=== PATIENT | male | born 1970 | race Caucasian/White ===

== ENCOUNTER 2016-03-10 18:54 | Observation (INO) | payer BC ==
--- NOTE | 2016-03-10 19:33 | ED ---
General Adult HPI - General Source: patient, RN notes reviewed Mode of arrival: ambulatory Limitations: no limitations <Rui Brito - Last Filed: 03/10/16 19:31> <Corbin Griffiths - Last Filed: 03/10/16 22:18> - General Chief complaint: Extremity Injury, Lower Stated complaint: LEFT FOOT, POSS CELLULITIS, SENT BY DR Short Seen by Provider: 03/10/16 19:20 - History of Present Illness Initial comments: Patient 45-year-old male significant past medical history for diabetes, who presents emergency room today with a chief complaint of possible cellulitis to the left foot. He does admit that 2 weeks ago he dropped a long approximately a foot or 2 down onto his left foot. States that he was increased swelling and redness locally. Does admit that he saw the family doctor advised him come here to the emergency room. He also admits that he's had a "charley horse" to the back of the left calf. He states he noticed this over the last few days. Patient denies any other complaints. He does admit to neuropathy to the left foot states pain is minimal. He has noticed some skin breakdown of the left great toe. Patient denies any recent fever, chills, shortness of breath, chest pain, back pain, abdominal pain, nausea or vomiting, numbness or tingling, dysuria or hematuria, constipation or diarrhea, headaches or visual changes, or any other complaints. (Rui Brito) - Related Data Home Medications Medication Instructions Recorded Confirmed Insulin Glargine [Lantus] 32 unit SQ AC-SUPPER 08/07/15 03/10/16 Enalapril [Vasotec] 5 mg PO DAILY 08/08/15 03/10/16 metFORMIN HCL 1,000 mg PO BID 08/08/15 03/10/16 sitaGLIPtin PHOSPHATE [Januvia] 100 mg PO DAILY 08/08/15 03/10/16 Allergies Allergy/AdvReac Type Severity Reaction Status Date / Time Penicillins Allergy Severe Unknown Verified 03/10/16 19:28 Childhood venom-honey bee Allergy Severe Dyspnea Verified 03/10/16 19:28 [bee venom (honey bee)] acetaminophen [From Tylenol] Allergy throat Verified 03/10/16 19:28 swelling Review of Systems ROS Other: All systems not noted in ROS Statement are negative. <Rui Brito - Last Filed: 03/10/16 19:31> ROS Other: All systems not noted in ROS Statement are negative. <Corbin Griffiths - Last Filed: 03/10/16 22:18> ROS Statement: Those systems with pertinent positive or pertinent negative responses have been documented in the HPI. Past Medical History Past Medical History: Diabetes Mellitus, Eye Disorder, GERD/Reflux, Osteoarthritis (OA) Additional Past Medical History / Comment(s): macular edema History of Any Multi-Drug Resistant Organisms: None Reported Past Surgical History: Appendectomy Additional Past Surgical History / Comment(s): oral surgery Past Anesthesia/Blood Transfusion Reactions: No Reported Reaction Past Psychological History: No Psychological Hx Reported Smoking Status: Never smoker Past Alcohol Use History: Rare Past Drug Use History: None Reported - Past Family History Mother Family Medical History: No Reported History <Rui Brito - Last Filed: 03/10/16 19:31> General Exam Limitations: no limitations <Rui Brito - Last Filed: 03/10/16 19:31> <Corbin Griffiths - Last Filed: 03/10/16 22:18> - General Exam Comments Initial Comments: General: The patient is awake and alert, in no distress, and does not appear acutely ill. Eye: Pupils are equal, round and reactive to light, extra-ocular movements are intact. No nystagmus. There is normal conjunctiva bilaterally. No signs of icterus. Ears, nose, mouth and throat: There are moist mucous membranes and no oral lesions. Neck: The neck is supple, there is no tenderness or JVD. Cardiovascular: There is a regular rate and rhythm. No murmur, rub or gallop is appreciated. Respiratory: Lungs are clear to auscultation, respirations are non-labored, breath sounds are equal. No wheezes, stridor, rales, or rhonchi. Musculoskeletal: Normal ROM, no tenderness. Strength 5/5. Sensation intact. Pulses equal bilaterally 2+. Neurological: A&O x 3. CN II-XII intact, There are no obvious motor or sensory deficits. Coordination appears grossly intact. Speech is normal. Skin: Redness and swelling locally to the left great toe and second digit. Patient does have ulcerated skin breakdown to the lateral aspect of the first digit with a small ulcer of the second digit on the medial aspect. Mild streaking to the anterior left foot. Psychiatric: Cooperative, appropriate mood & affect, normal judgment. (Rui Brito) Medical Decision Making <Rui Brito - Last Filed: 03/10/16 19:31> - Lab Data Result diagrams: 03/10/16 19:50 03/10/16 19:50 <Corbin Griffiths - Last Filed: 03/10/16 22:18> - Medical Decision Making Medical decision-making. The patient's ultrasound of the leg was done to rule out DVT. The radiologist's impression is left leg. Appears negative for DVT. Enlarged lymph nodes is noted in the groin region. Impression normal exam. No evidence of DVT in the left leg. As read by Dr. Munoz X-ray of the foot was done and reviewed radiologist his impression is no fracture dislocation. There is no Achilles calcaneal spur. Metatarsals are intact. There are no erosions. Impression calcaneal spurring, no fracture, no sign of osteomyelitis. As read by Dr. Munoz Patient had an IV started was started on IV antibiotics because of cellulitis associated with to ulcers on his left great and second toe. No evidence of osteomyelitis. There was localized cellulitis. (Corbin Griffiths) - Lab Data Lab Results 03/10/16 03/10/16 Range/Units 19:50 19:50 WBC 9.7 (3.8-10.6) k/uL RBC 4.71 (4.30-5.90) m/uL Hgb 13.7 (13.0-17.5) gm/dL Hct 38.9 L (39.0-53.0) % MCV 82.6 (80.0-100.0) fL MCH 29.2 (25.0-35.0) pg MCHC 35.3 (31.0-37.0) g/dL RDW 13.3 (11.5-15.5) % Plt Count 264 (150-450) k/uL Neutrophils % 61 % Lymphocytes % 26 % Monocytes % 7 % Eosinophils % 4 % Basophils % 1 % Neutrophils # 5.9 (1.3-7.7) k/uL Lymphocytes # 2.5 (1.0-4.8) k/uL Monocytes # 0.7 (0-1.0) k/uL Eosinophils # 0.4 (0-0.7) k/uL Basophils # 0.1 (0-0.2) k/uL Sodium 137 (137-145) mmol/L Potassium 4.2 (3.5-5.1) mmol/L Chloride 101 (98-107) mmol/L Carbon Dioxide 24 (22-30) mmol/L Anion Gap 12 mmol/L BUN 13 (9-20) mg/dL Creatinine 0.79 (0.66-1.25) mg/dL Est GFR (MDRD) Af Amer >60 (>60 ml/min/1.73 sqM) Est GFR (MDRD) Non-Af >60 (>60 ml/min/1.73 sqM) Glucose 158 H (74-99) mg/dL Calcium 9.4 (8.4-10.2) mg/dL Total Bilirubin 0.4 (0.2-1.3) mg/dL AST 24 (17-59) U/L ALT 42 (21-72) U/L Alkaline Phosphatase 108 (38-126) U/L Total Protein 7.2 (6.3-8.2) g/dL Albumin 4.3 (3.5-5.0) g/dL Disposition <Rui Brito - Last Filed: 03/10/16 19:31> <Corbin Griffiths - Last Filed: 03/10/16 22:18> Clinical Impression: Cellulitis of left foot, History of diabetes mellitus Disposition: ADMITTED IP TO THIS [facility] Condition: Fair
--- NOTE | 2016-03-10 19:46 | XR ---
EXAMINATION TYPE: XR foot complete LT DATE OF EXAM: 03/10/2016 7:42 PM COMPARISON: None HISTORY: Pain and swelling TECHNIQUE: 3 views FINDINGS: I see no fracture nor dislocation. There is an Achilles calcaneal spur. Metatarsals are int act. There are no erosions. IMPRESSION: Calcaneal spurring. No fracture. No sign of osteomyelitis.
[2016-03-10] MEDS ORDERED: CLINDAMYCIN 600 MG in DEXTROSE 5% IN WATER 50 ML IVPB STA ×2 (20:06)
[2016-03-10 20:07] LABS: Basophils # (A) 0.1 k/uL (0-0.2); Basophils % (A) 1 %; CH 30.1; CHCM 36.6; Eosinophils # (A) 0.4 k/uL (0-0.7); Eosinophils % (A) 4 %; HCT 38.9 % (39.0-53.0); HDW 2.99; HGB 13.7 gm/dL (13.0-17.5); Luc % (Auto) 2; Lymphocytes # (A) 2.5 k/uL (1.0-4.8); Lymphocytes % (A) 26 %; MCH 29.2 pg (25.0-35.0); MCHC 35.3 g/dL (31.0-37.0); MCV 82.6 fL (80.0-100.0); Mean Platelet Volume 6.9; Monocytes # (A) 0.7 k/uL (0-1.0); Monocytes % (A) 7 %; Neutrophils # (A) 5.9 k/uL (1.3-7.7); Neutrophils % (A) 61 %; RBC 4.71 m/uL (4.30-5.90); RDW 13.3 % (11.5-15.5); WBC 9.7 k/uL (3.8-10.6); WBC (Perox) 10.06
[2016-03-10 20:19] LABS: ALT 42 U/L (21-72); AST 24 U/L (17-59); Alkaline Phosphatase 108 U/L (38-126); Anion Gap 12 mmol/L; Blood Urea Nitrogen 13 mg/dL (9-20); Calcium 9.4 mg/dL (8.4-10.2); Carbon Dioxide 24 mmol/L (22-30); Chloride 101 mmol/L (98-107); Glucose 158 mg/dL (74-99); Non-African American GFR(MDRD) >60 (>60 ml/min/1.73 sqM); Potassium 4.2 mmol/L (3.5-5.1); Sodium 137 mmol/L (137-145); Total Bilirubin 0.4 mg/dL (0.2-1.3); Total Protein 7.2 g/dL (6.3-8.2)
--- NOTE | 2016-03-10 22:02 | US ---
EXAMINATION TYPE: US venous doppler duplex LE LT DATE OF EXAM: 03/10/2016 9:44 PM COMPARISON: NONE CLINICAL HISTORY: Left leg pain, no hx of blood clots or on any blood thinners. SIDE PERFORMED: Left VESSELS IMAGED: External Iliac Vein (EIV) Common Femoral Vein Deep Femoral Vein Greater Saphenous Vein * Femoral Vein Popliteal Vein Small Saphenous Vein * Proximal Calf Veins (* superficial vessels) TECHNOLOGIST IMPRESSION: Left Leg: Appears negative for DVT. Enlarged lymph nodes noted in left groin IMPRESSION: Normal exam. No evidence of deep venous thrombosis in the left leg.
[2016-03-10] MEDS ORDERED: NALOXONE 0.4 MG/ML 1 ML VIAL IV PRN (22:18)
[2016-03-10 23:54] VITALS: RESP 16
[2016-03-10] MEDS: CLINDAMYCIN 600 MG in DEXTROSE 5% IN WATER 50 ML IVPB SCH ×2 (23:59)
[2016-03-11] MEDS: CLINDAMYCIN 600 MG in DEXTROSE 5% IN WATER 50 ML IVPB SCH ×4 (05:02→13:12)
[2016-03-11 06:58] LABS: Glucose,Whole Blood 141 mg/dL (75-99)
[2016-03-11] MEDS ORDERED: LISINOPRIL 10 MG TAB PO SCH (09:00)
[2016-03-11] MEDS ORDERED: LINAGLIPTIN 5 MG TABLET PO SCH (09:00)
[2016-03-11] MEDS ORDERED: metFORMIN 500 MG TAB PO SCH (09:00)
[2016-03-11] MEDS: SODIUM CHLORIDE 0.9% 1,000 ML IV SCH ×2 (12:06)
[2016-03-11 12:09] LABS: Glucose,Whole Blood 137 mg/dL (75-99)
[2016-03-11 14:33] VITALS: BP 129/70; PULSE 80; TEMP 97.9
[2016-03-11] MEDS ORDERED: INSULIN GLARGINE 100 UNIT/ML 10 ML VIAL SQ SCH (17:30)
--- NOTE | 2016-03-11 17:38 | HP ---
DATE OF ADMISSION: 03/10/2016 Patient is a very pleasant 45-year-old gentleman came in with cellulitis of the right toe. Patient hit his toe recently followed by swelling of the toe and redness localized of temperature. Patient was started on Clindamycin with significant improvement. Patient had an x-ray and Doppler of the left lower extremity. His x-ray did not show any fracture. There is some calcaneal spurs and patient does have lymphadenopathy on the Doppler and patient does not have any deep venous thrombosis and patient denied any fever, chills. Patient denied any nausea or vomiting, abdominal pain. Patient's primary care physician asked him to go to the emergency room and patient was started on clindamycin with significant improvement in the redness and because of which I am sending home on clindamycin. If his symptoms does not improve or gets worse, patient was asked to come back to the hospital. Patient will be asked to come back to the hospital. On exam patient was found to have a couple of small ulcers one on the great toe lateral aspect and medial aspect of the second toe because of both the toes being opposing each of ( ). Patient denied any dysuria. Patient denied any cough, runny nose. REVIEW OF SYSTEMS: CONSTITUTIONAL: No fever, no malaise, no fatigue. HEENT: No recent visual problems or hearing problems. Denied any sore throat. CARDIOVASCULAR: No chest pain, orthopnea, PND, no palpitations, no syncope. PULMONARY: No shortness of breath, no cough, no hemoptysis. GASTROINTESTINAL: No diarrhea, no nausea, no vomiting, no abdominal pain. Normoactive bowel sounds. NEUROLOGICAL: No headaches, no weakness, no numbness. HEMATOLOGICAL: Denies any bleeding or petechiae. GENITOURINARY: Denies any burning micturition, frequency, or urgency. MUSCULOSKELETAL/RHEUMATOLOGICAL: Denies any joint pain, swelling, or any muscle pain. ENDOCRINE: Denies any polyuria or polydipsia. Dermatologic: As described in history of present illness. The rest of the 14 point review of systems is negative. Home medications include: 1. Glargine. 2. Enalapril. 3. Metformin. 4. Januvia. ALLERGIES: ALLERGIC TO PENICILLIN BEE VENOM AND ACETAMINOPHEN. PAST MEDICAL HISTORY: Diabetes mellitus, gastroesophageal reflux disease, hyperlipidemia, hypertension, osteoarthritis, appendectomy. SOCIAL HISTORY: Denies smoking, alcohol abuse or any drug abuse. FAMILY HISTORY: Significant for diabetes mellitus in the family. PHYSICAL EXAMINATION: VITAL SIGNS: Temperature 97.9, pulse of 80, respiratory rate of 16, blood pressure is 121/70, saturating at 96% on room air. GENERAL: The patient is alert and oriented x3, not in any acute distress. Well developed, well nourished. HEENT: Pupils are round and equally reacting to light. EOMI. No scleral icterus. No conjunctival pallor. Normocephalic, atraumatic. No pharyngeal erythema. No thyromegaly. CARDIOVASCULAR: S1 and S2 present. No murmurs, rubs, or gallops. PULMONARY: Chest is clear to auscultation, no wheezing or crackles. ABDOMEN: Soft, nontender, nondistended, normoactive bowel sounds. No palpable organomegaly. MUSCULOSKELETAL: No joint swelling or deformity. EXTREMITIES: No cyanosis, clubbing, or pedal edema. NEUROLOGICAL: Gross neurological examination did not reveal any focal deficits. SKIN/dermatologic: As mentioned above and patient does have redness around the great toe area. ASSESSMENT AND PLAN: 1. Left great toe cellulitis with nidus of infection being the ulcers in between the toes as mentioned above for which I will go ahead and order topical antibiotic along with clindamycin for cellulitis. Local wound care instructions will be provided for him as well. 2. Diabetes mellitus. Well controlled blood sugars. The patient will continue his home regimen. 3. Hypertension. Continue with Enalapril. 4. Gastroesophageal reflux disease. This dictation is both history and physical examination and discharge summary. Patient's primary care physician is Dr. Terry Sanchez. Discharge diet is diabetic and cardiac. Activity as tolerated. Follow with primary care physician in 3 to 7 days.
== END 2016-03-11 17:30 | disposition home or self-care (01) ==
LOC: EC 18:54 → 4MS4W 22:22
PROVIDERS: ADMIT Internal Medicine; ATTEND Internal Medicine
DX: L03.032 Cellulitis of left toe (principal); L97.529 Non-pressure chronic ulcer of other part of left foot with unspecified severity; E11.9 Type 2 diabetes mellitus without complications; I10 Essential (primary) hypertension; K21.9 Gastro-esophageal reflux disease without esophagitis; H35.81 Retinal edema; M77.32 Calcaneal spur, left foot; M19.90 Unspecified osteoarthritis, unspecified site; Z79.4 Long term (current) use of insulin; Z79.84 Long term (current) use of oral hypoglycemic drugs; Z79.899 Other long term (current) drug therapy; Z88.6 Allergy status to analgesic agent; Z88.0 Allergy status to penicillin; Z83.3 Family history of diabetes mellitus
CPT/HCPCS: 36415; 80053; 85025; 87040; 87070; 87205; 87075; 73630; 93971; 99285; 96365; G0378 ×2; 87077; 87186; 96375

== ENCOUNTER 2016-03-12 20:54 | Emergency (ER) | payer BC ==
[2016-03-12 21:36] VITALS: RESP 18
--- NOTE | 2016-03-12 22:17 | ED ---
General Adult HPI - General Source: patient Mode of arrival: ambulatory Limitations: no limitations <Corbin Griffiths - Last Filed: 03/12/16 22:16> - General Source: RN notes reviewed <Rui Brito - Last Filed: 03/12/16 22:37> - General Chief complaint: Skin/Abscess/Foreign Body Stated complaint: foot infection-revisit Time Seen by Provider: 03/12/16 21:49 - History of Present Illness Initial comments: Patient for 5-year-old male who presents emergency room today with chief complaint of possible increased infection to the left great toe. He does admit to being a diabetic was seen here in the emergency room 2 days ago admitted. Did have IV antibiotics" myosin continue at home. States she's noticed some increased swelling today with some mild increased redness to the top of foot. States was concerned that infection may be getting worse. He denies any other complaints or symptoms. Patient denies any recent fever, chills, shortness of breath, chest pain, back pain, abdominal pain, nausea or vomiting, numbness or tingling, dysuria or hematuria, constipation or diarrhea, headaches or visual changes, or any other complaints. (Rui Brito) - Related Data Home Medications Medication Instructions Recorded Confirmed Insulin Glargine [Lantus] 32 unit SQ AC-SUPPER 08/07/15 03/12/16 Enalapril [Vasotec] 5 mg PO DAILY 08/08/15 03/12/16 metFORMIN HCL 1,000 mg PO BID 08/08/15 03/12/16 sitaGLIPtin PHOSPHATE [Januvia] 100 mg PO DAILY 08/08/15 03/12/16 Previous Rx's Medication Instructions Recorded Bacitracin/Polymyxin B Sulfate 1 applic TOPICAL BID #1 each 03/11/16 [Polysporin Ointment] Clindamycin [Cleocin] 300 mg PO Q6H #28 capsule 03/11/16 Mupirocin 2% Oint [Bactroban Oint] 1 applic TOPICAL TID #1 gm 03/12/16 Allergies Allergy/AdvReac Type Severity Reaction Status Date / Time Penicillins Allergy Severe Unknown Verified 03/12/16 21:34 Childhood venom-honey bee Allergy Severe Dyspnea Verified 03/12/16 21:34 [bee venom (honey bee)] acetaminophen [From Tylenol] Allergy throat Verified 03/12/16 21:34 swelling Review of Systems ROS Other: All systems not noted in ROS Statement are negative. <TundeCorbin - Last Filed: 03/12/16 22:16> ROS Other: All systems not noted in ROS Statement are negative. <Rui Brito - Last Filed: 03/12/16 22:37> ROS Statement: Those systems with pertinent positive or pertinent negative responses have been documented in the HPI. Past Medical History Past Medical History: Diabetes Mellitus, Eye Disorder, GERD/Reflux, Osteoarthritis (OA) Additional Past Medical History / Comment(s): macular edema History of Any Multi-Drug Resistant Organisms: None Reported Past Surgical History: Appendectomy Additional Past Surgical History / Comment(s): oral surgery Past Anesthesia/Blood Transfusion Reactions: No Reported Reaction Past Psychological History: No Psychological Hx Reported Smoking Status: Never smoker Past Alcohol Use History: Rare Past Drug Use History: None Reported - Past Family History Mother Family Medical History: Diabetes Mellitus <Corbin Griffiths - Last Filed: 03/12/16 22:16> General Exam Limitations: no limitations <Corbin Griffiths - Last Filed: 03/12/16 22:16> <Rui Brito - Last Filed: 03/12/16 22:37> - General Exam Comments Initial Comments: General: The patient is awake and alert, in no distress, and does not appear acutely ill. Eye: Pupils are equal, round and reactive to light, extra-ocular movements are intact. No nystagmus. There is normal conjunctiva bilaterally. No signs of icterus. Ears, nose, mouth and throat: There are moist mucous membranes and no oral lesions. Neck: The neck is supple, there is no tenderness or JVD. Cardiovascular: There is a regular rate and rhythm. No murmur, rub or gallop is appreciated. Respiratory: Lungs are clear to auscultation, respirations are non-labored, breath sounds are equal. No wheezes, stridor, rales, or rhonchi. Musculoskeletal: Normal ROM, no tenderness. Strength 5/5. Sensation intact. Pulses equal bilaterally 2+. Neurological: A&O x 3. CN II-XII intact, There are no obvious motor or sensory deficits. Coordination appears grossly intact. Speech is normal. Skin: Also to the lateral aspect of the first digit of the left foot with second ulcer to the second digit of the medial aspect. No lymphangitic streaking. Psychiatric: Cooperative, appropriate mood & affect, normal judgment. (Rui Brito) Medical Decision Making <Corbin Griffiths - Last Filed: 03/12/16 22:16> <Rui Brito - Last Filed: 03/12/16 22:37> - Medical Decision Making I examine the patient's foot is slightly less red and not worse than it was 2 days ago. Mildly swollen though. He does have a blisterlike ulcer between the first and second toe on the second toe. This be covered with mupirocin. The patient's been advised to continue with his clindamycin. Advised them take well lit pictures daily to show to his physician to see if in fact is improving or getting worse. No fever. Dr. Griffiths (Corbin Griffiths) Disposition <Corbin Griffiths - Last Filed: 03/12/16 22:16> Time of Disposition: 22:37 <Rui Brito - Last Filed: 03/12/16 22:37> Clinical Impression: Diabetic foot ulcer Disposition: HOME SELF-CARE Condition: Stable Instructions: Diabetic Foot Ulcers (ED) Additional Instructions: Please use medication as discussed. Please follow-up with family doctor in the next 1 to 2 days of symptoms have not improved. Please return to emergency room if the symptoms increase or worsen or for any other concerns. Prescriptions: Mupirocin 2% Oint [Bactroban Oint] 1 applic TOPICAL TID #1 gm
[2016-03-12] MEDS ORDERED: MUPIROCIN 2% OINT 22 GM TUBE TOPICAL SCH (22:30)
[2016-03-12 22:46] VITALS: BP 133/69; PULSE 88; TEMP 97
== END 2016-03-12 22:46 | disposition home or self-care (01) ==
LOC: EC 20:54
DX: E11.621 Type 2 diabetes mellitus with foot ulcer (principal); Z79.4 Long term (current) use of insulin; Z79.899 Other long term (current) drug therapy; Z79.84 Long term (current) use of oral hypoglycemic drugs; Z88.0 Allergy status to penicillin; Z88.6 Allergy status to analgesic agent
CPT/HCPCS: 99282

== ENCOUNTER 2019-03-12 16:27 | Emergency (ER) | payer BC ==
[2019-03-12 16:34] VITALS: RESP 18; TEMP 98.2
--- NOTE | 2019-03-12 16:47 | ED ---
Lower Extremity Injury HPI - General Chief Complaint: Extremity Injury, Lower Stated Complaint: poss toe infection Time Seen by Provider: 03/12/19 16:35 Source: patient Mode of arrival: ambulatory Limitations: no limitations - History of Present Illness Initial Comments: Patient is a 48-year-old male with history of type 2 diabetes presenting to emergency Department with a chief complaint of left toe pain. Patient states he woke up this morning and noticed skin avulsion on the posterior aspect of his right big toe. Patient denies any pain in the region. He denies any drainage, erythema or swelling. Patient also reports after waking up this morning his noticed swelling in the right lower extremity. Patient states that it feels like a charley horse and has some calf tenderness that radiates up to the medial aspect of the right thigh. Patient denies any trauma to the region. Patient denies history of DVT or cardiovascular disease. He denies cough, hemoptysis or shortness of breath. No history of diabetic ulcers. Denies fevers or chills. - Related Data Home Medications Medication Instructions Recorded Confirmed Insulin Glargine [Lantus] 32 unit SQ AC-SUPPER 08/07/15 03/12/16 Enalapril [Vasotec] 5 mg PO DAILY 08/08/15 03/12/16 metFORMIN HCL 1,000 mg PO BID 08/08/15 03/12/16 sitaGLIPtin PHOSPHATE [Januvia] 100 mg PO DAILY 08/08/15 03/12/16 Previous Rx's Medication Instructions Recorded Bacitracin/Polymyxin B Sulfate 1 applic TOPICAL BID #1 each 03/11/16 [Polysporin Ointment] Clindamycin [Cleocin] 300 mg PO Q6H #28 capsule 03/11/16 Mupirocin 2% Oint [Bactroban Oint] 1 applic TOPICAL TID #1 gm 03/12/16 Allergies Allergy/AdvReac Type Severity Reaction Status Date / Time Penicillins Allergy Severe Unknown Verified 03/12/16 21:34 Childhood venom-honey bee Allergy Severe Dyspnea Verified 03/12/16 21:34 [bee venom (honey bee)] acetaminophen [From Tylenol] Allergy throat Verified 03/12/16 21:34 swelling Review of Systems ROS Statement: Those systems with pertinent positive or pertinent negative responses have been documented in the HPI. ROS Other: All systems not noted in ROS Statement are negative. Past Medical History Past Medical History: Diabetes Mellitus, Eye Disorder, GERD/Reflux, Osteoarthritis (OA) Additional Past Medical History / Comment(s): macular edema History of Any Multi-Drug Resistant Organisms: None Reported Past Surgical History: Appendectomy Additional Past Surgical History / Comment(s): oral surgery Past Anesthesia/Blood Transfusion Reactions: No Reported Reaction Past Psychological History: No Psychological Hx Reported Smoking Status: Never smoker Past Alcohol Use History: Rare Past Drug Use History: None Reported - Past Family History Mother Family Medical History: Diabetes Mellitus General Exam Limitations: no limitations General appearance: alert, in no apparent distress Head exam: Present: atraumatic, normocephalic, normal inspection Eye exam: Present: normal appearance Pupils: Present: normal accommodation ENT exam: Present: normal exam, mucous membranes moist Neck exam: Present: normal inspection, full ROM Respiratory exam: Present: normal lung sounds bilaterally Cardiovascular Exam: Present: regular rate, normal rhythm, normal heart sounds Extremities exam: Present: full ROM, normal capillary refill, pedal edema (+ 1 nopitting edema RLE. ), calf tenderness (Positive Homans right lower extremity.), other (+2 dorsalis pedis and posterior tibialis bilaterally.). Absent: normal inspection (Skin avulsion measuring approximately 1.5 cm in diameter on the posterior aspect of the right big toe. No discharge or inflammation noted. Right lower extremity swelling.) Back exam: Present: normal inspection, full ROM Neurological exam: Present: alert, oriented X3 Psychiatric exam: Present: normal affect, normal mood Skin exam: Present: warm, dry, intact, normal color Course Vital Signs 03/12/19 16:29 Temperature 98.2 F Pulse Rate 108 H Respiratory 18 Rate Blood Pressure 162/94 O2 Sat by Pulse 97 Oximetry Medical Decision Making - Medical Decision Making Patient is a 48-year-old male presenting to emergency Department with a chief complaint of a toe injury. On exam patient has skin avulsion of the toe. No discharge or inflammation noted. Patient also appears to have right lower extremity edema with a positive Homans sign. Patient states the pain feels actually worse that is going to the right groin region. Doppler ultrasound shows no signs of a DVT. However, a lymph node was appreciated in the right groin region. Patient advised to keep the leg elevated above heart level. He was also advised to use compression stockings. The avulsion was dressed accordingly. Patient was to follow-up with primary care. Patient is a type II diabetic with mild peripheral neuropathy and advised him to come to the ED if any changes to the region occurred. Patient given thorough wound care instructions. Strict return parameters were thoroughly discussed the patient is under standing and agreeable. Case discussed with physician. Disposition Clinical Impression: Avulsion of skin of toe, Edema, lower extremity Disposition: HOME SELF-CARE Condition: Stable Instructions (If sedation given, give patient instructions): Acute Wound Care (ED), Chronic Wound Care (ED), Diabetic Foot Ulcers (ED) Additional Instructions: Please follow up with primary care. Please return to emergency department if symptoms worsen. Follow proper wound care instructions. Is patient prescribed a controlled substance at d/c from ED?: No Referrals: Terry James DO [Primary Care Provider] - 1-2 days Time of Disposition: 18:28
--- NOTE | 2019-03-12 17:39 | US ---
EXAMINATION TYPE: US venous doppler duplex LE RT DATE OF EXAM: 03/12/2019 4:44 PM COMPARISON: NONE CLINICAL HISTORY: Right leg swelling. Right toe wound SIDE PERFORMED: Right TECHNIQUE: The lower extremity deep venous system is examined utilizing real time linear array sonog terry with graded compression, doppler sonography and color-flow sonography. VESSELS IMAGED: External Iliac Vein (EIV) Common Femoral Vein Deep Femoral Vein Greater Saphenous Vein * Femoral Vein Popliteal Vein Small Saphenous Vein * Proximal Calf Veins (* superficial vessels) There is normal flow, compressibility, vascular waveforms. Right Leg: Negative for DVT Within the right groin, there is a probable lymph node visualized measuring 3.2 x 1.5 x 1.6 cm IMPRESSION: No evident deep venous thrombosis at or above the right knee.
[2019-03-12 18:44] VITALS: BP 152/92; PULSE 96
== END 2019-03-12 18:44 | disposition home or self-care (01) ==
LOC: EC 16:27
DX: S91.101A Unspecified open wound of right great toe without damage to nail, initial encounter (principal); R60.0 Localized edema; E11.42 Type 2 diabetes mellitus with diabetic polyneuropathy; Z88.0 Allergy status to penicillin; Z88.6 Allergy status to analgesic agent; Z91.030 Bee allergy status; Z79.4 Long term (current) use of insulin; Z79.899 Other long term (current) drug therapy; Z83.3 Family history of diabetes mellitus; X58.XXXA Exposure to other specified factors, initial encounter
CPT/HCPCS: 99283

== ENCOUNTER 2020-03-07 20:42 | Inpatient (IN) | payer BC ==
[2020-03-07] MEDS ORDERED: VANCOMYCIN IV PER PHARMACY 1 EACH MISC MISCELLANE PRN (20:54)
[2020-03-07] MEDS ORDERED: VANCOMYCIN 1,750 MG in SODIUM CHLORIDE 0.9% 500 ML 500 ML IVPB STA (20:56)
--- NOTE | 2020-03-07 21:03 | ED ---
General Adult HPI - General Chief complaint: Extremity Injury, Lower Stated complaint: Foot Infection Time Seen by Provider: 03/07/20 20:49 Source: patient Mode of arrival: ambulatory Limitations: no limitations - History of Present Illness Initial comments: 49-year-old male patient presents to the emergency department today for evaluation of infection to the left foot. Patient states that he had surgery with his compatibility test engineer in December 2019. States that he has had a recurrent wound to the area. He is managed by Dr. Yap at [facility]. States that his physician evaluated the wound Thursday and applied a dressing. States remove the dressing today and the area seemed to have worsened. He states it is quite swollen and has developed an abscess. Patient states that he has been feeling rundown and fatigued throughout the day today. Denies any nausea or vomiting. Denies any known fever. Patient denies any recent rash, cough, shortness of breath, chest pain, abdominal pain, diarrhea, constipation, back pain, numbness, tingling, dizziness, weakness, hematuria, dysuria, urinary urgency, urinary frequency, headache, visual changes, or any other complaints. - Related Data Home Medications Medication Instructions Recorded Confirmed Insulin Glargine [Lantus] 50 unit SQ DAILY 08/07/15 03/07/20 Enalapril [Vasotec] 5 mg PO DAILY 08/08/15 03/07/20 metFORMIN HCL 1,000 mg PO BID 08/08/15 03/07/20 sitaGLIPtin PHOSPHATE [Januvia] 100 mg PO DAILY 08/08/15 03/07/20 Rosuvastatin Calcium [Crestor] 20 mg PO HS 03/07/20 03/07/20 Sildenafil Citrate [Viagra] 100 mg PO DAILY PRN 03/07/20 03/07/20 Sulfamethox-Tmp 800-160Mg [Bactrim 1 tab PO BID 03/07/20 03/07/20 DS 800-160 mg] Allergies Allergy/AdvReac Type Severity Reaction Status Date / Time Penicillins Allergy Severe Unknown Verified 03/07/20 21:57 Childhood venom-honey bee Allergy Severe Dyspnea Verified 03/07/20 21:57 [bee venom (honey bee)] acetaminophen [From Tylenol] Allergy throat Verified 03/07/20 21:57 swelling Review of Systems ROS Statement: Those systems with pertinent positive or pertinent negative responses have been documented in the HPI. ROS Other: All systems not noted in ROS Statement are negative. Past Medical History Past Medical History: Diabetes Mellitus, Eye Disorder, GERD/Reflux, Osteoarthritis (OA) Additional Past Medical History / Comment(s): macular edema, History of Any Multi-Drug Resistant Organisms: None Reported Past Surgical History: Appendectomy Additional Past Surgical History / Comment(s): oral surgery, right foot surgery, Past Anesthesia/Blood Transfusion Reactions: No Reported Reaction Past Psychological History: No Psychological Hx Reported Smoking Status: Never smoker Past Alcohol Use History: None Reported Past Drug Use History: None Reported - Past Family History Mother Family Medical History: Diabetes Mellitus General Exam Limitations: no limitations General appearance: alert, in no apparent distress, other (This is a well- developed, well-nourished adult male patient in no acute distress. Vital signs upon presentation are temperature 99.6F, pulse 106, respirations 17, blood pressure 179/82, pulse ox 98% on room air.) Eye exam: Present: normal appearance, PERRL, EOMI. Absent: scleral icterus, conjunctival injection, periorbital swelling ENT exam: Present: normal exam, normal oropharynx, mucous membranes moist Respiratory exam: Present: normal lung sounds bilaterally. Absent: respiratory distress, wheezes, rales, rhonchi, stridor Cardiovascular Exam: Present: regular rate, normal rhythm, normal heart sounds. Absent: systolic murmur, diastolic murmur, rubs, gallop, clicks GI/Abdominal exam: Present: soft, normal bowel sounds. Absent: distended, tenderness, guarding, rebound, rigid Extremities exam: Present: full ROM, normal capillary refill, other (There is left foot soft tissue swelling and erythema, there appears to a be a large abscess to the dorsal foot between the first and second digits. Skin is otherwise pink warm and dry. Cap refill less than 3 seconds. Pedal pulses 2+). Absent: normal inspection, tenderness, pedal edema, joint swelling, calf tenderness Neurological exam: Present: alert, oriented X3, CN II-XII intact Psychiatric exam: Present: normal affect, normal mood Skin exam: Present: warm, dry, intact, normal color. Absent: rash Course Vital Signs 03/07/20 03/07/20 20:43 22:39 Temperature 99.6 F Pulse Rate 106 H 86 Respiratory 17 18 Rate Blood Pressure 179/82 157/86 O2 Sat by Pulse 98 96 Oximetry Procedures - Incision & Drainage Consent Obtained: verbal consent Indication: abscess Site: foot (left) Size (cm): 3 I&D Cleaning Method: Betadine I&D Drainage Obtained: Pus, Blood Culture Obtained?: Yes Patient Tolerated Procedure: well, no complications Medical Decision Making - Medical Decision Making 49-year-old male patient presents to the emergency department today for evaluation of infection to the left foot. He was sent in by his specialist Dr. Geiger at the [facility]. Physical examination did reveal a 3 cm by 3cm abscess to the dorsal foot between the 2nd and 3rd digit. There is overlying erythema and swelling. He did have mildly elevated temperature 99.7, is tachycardic at 109. Labs reviewed and are relatively unremarkable. White blood cell count is normal. Blood cultures were sent. X-ray was obtained and did show evidence for osteomyelitis, I did discuss this with the patient, states that his physician is aware and states this does appear to be improving. He'll be started on vancomycin and Rocephin. He'll be admitted to the hospital for further evaluation by wound care. He is agreeable with this plan. - Lab Data Result diagrams: 03/07/20 21:19 03/07/20 21:19 Lab Results 03/07/20 03/07/20 Range/Units 21:19 21:19 WBC 8.3 (3.8-10.6) k/uL RBC 4.76 (4.30-5.90) m/uL Hgb 13.6 (13.0-17.5) gm/dL Hct 38.1 L (39.0-53.0) % MCV 80.0 (80.0-100.0) fL MCH 28.5 (25.0-35.0) pg MCHC 35.7 (31.0-37.0) g/dL RDW 13.2 (11.5-15.5) % Plt Count 200 (150-450) k/uL MPV 6.2 Neutrophils % 70 % Lymphocytes % 15 % Monocytes % 10 % Eosinophils % 2 % Basophils % 1 % Neutrophils # 5.8 (1.3-7.7) k/uL Lymphocytes # 1.3 (1.0-4.8) k/uL Monocytes # 0.8 (0-1.0) k/uL Eosinophils # 0.1 (0-0.7) k/uL Basophils # 0.1 (0-0.2) k/uL Sodium 130 L (137-145) mmol/L Potassium 4.8 (3.5-5.1) mmol/L Chloride 97 L (98-107) mmol/L Carbon Dioxide 25 (22-30) mmol/L Anion Gap 8 mmol/L BUN 20 (9-20) mg/dL Creatinine 1.06 (0.66-1.25) mg/dL Est GFR (CKD-EPI)AfAm >90 (>60 ml/min/1.73 sqM) Est GFR (CKD-EPI)NonAf 82 (>60 ml/min/1.73 sqM) Glucose 337 H (74-99) mg/dL Calcium 9.3 (8.4-10.2) mg/dL Total Bilirubin 0.5 (0.2-1.3) mg/dL AST 36 (17-59) U/L ALT 61 H (4-49) U/L Alkaline Phosphatase 185 H (38-126) U/L Total Protein 7.3 (6.3-8.2) g/dL Albumin 3.9 (3.5-5.0) g/dL Disposition Clinical Impression: Foot abscess, left, Cellulitis of left foot Disposition: ADMITTED IP TO THIS [facility] Condition: Serious Decision to Admit Reason: Admit from EC Decision Date: 03/07/20 Decision Time: 22:44
[2020-03-07 21:41] LABS: Basophils # (A) 0.1 k/uL (0-0.2); Basophils % (A) 1 %; Eosinophils # (A) 0.1 k/uL (0-0.7); Eosinophils % (A) 2 %; HCT 38.1 % (39.0-53.0); HGB 13.6 gm/dL (13.0-17.5); Lymphocytes # (A) 1.3 k/uL (1.0-4.8); Lymphocytes % (A) 15 %; MCH 28.5 pg (25.0-35.0); MCHC 35.7 g/dL (31.0-37.0); Mean Platelet Volume 6.2; Monocytes # (A) 0.8 k/uL (0-1.0); Monocytes % (A) 10 %; Neutrophils # (A) 5.8 k/uL (1.3-7.7); Neutrophils % (A) 70 %; Platelet Count 200 k/uL (150-450); RBC 4.76 m/uL (4.30-5.90); RDW 13.2 % (11.5-15.5); WBC 8.3 k/uL (3.8-10.6)
[2020-03-07 21:59] LABS: ALT 61 U/L (4-49); AST 36 U/L (17-59); African American GFR (CKD) >90 (>60 ml/min/1.73 sqM); Albumin 3.9 g/dL (3.5-5.0); Alkaline Phosphatase 185 U/L (38-126); Anion Gap 8 mmol/L; Blood Urea Nitrogen 20 mg/dL (9-20); Calcium 9.3 mg/dL (8.4-10.2); Carbon Dioxide 25 mmol/L (22-30); Chloride 97 mmol/L (98-107); Glucose 337 mg/dL (74-99); Non-African American GFR(CKD) 82 (>60 ml/min/1.73 sqM); Potassium 4.8 mmol/L (3.5-5.1); Sodium 130 mmol/L (137-145); Total Bilirubin 0.5 mg/dL (0.2-1.3); Total Protein 7.3 g/dL (6.3-8.2)
--- NOTE | 2020-03-07 22:01 | XR ---
Result: History: Pain and swelling. Comparison: None available. Technique: 3 views of the right foot. Findings: The bone mineralization is appropriate for age. There is pathologic fracture of the great toe distal phalangeal tuft. There is fragmentation of the g reat toe metatarsal head. There is smooth linear defect within the great toe proximal phalanx suggest rebel of osteotomy. No evidence of dislocation. There is soft tissue swelling about the great toe. No s oft tissue gas. Impression: Pathologic fracture of great toe distal phalanx and fragmentation of the great toe metatarsal head. F indings are concerning for osteomyelitis. Consider further evaluation with MRI for increased sensitiv ity. Suggestion of great toe proximal phalanx osteotomy. Recommend correlation with history. Soft tissue swelling about the great toe. No soft tissue gas.
[2020-03-07] MEDS ORDERED: NALOXONE 0.4 MG/ML 1 ML VIAL IV PRN (22:39)
[2020-03-07] MEDS ORDERED: ONDANSETRON 4 MG/2 ML VIAL IVP PRN (22:39)
[2020-03-07] MEDS ORDERED: MORPHINE SULFATE 4 MG/ML SYRINGE IV PRN (22:39)
--- NOTE | 2020-03-07 23:46 | ED ---
Medical Decision Making - Medical Decision Making Previous documentation reads left foot, it is in fact his right foot with the infection and abscess. - Lab Data Result diagrams: 03/07/20 21:19 03/07/20 21:19 Lab Results 03/07/20 03/07/20 Range/Units 21:19 21:19 WBC 8.3 (3.8-10.6) k/uL RBC 4.76 (4.30-5.90) m/uL Hgb 13.6 (13.0-17.5) gm/dL Hct 38.1 L (39.0-53.0) % MCV 80.0 (80.0-100.0) fL MCH 28.5 (25.0-35.0) pg MCHC 35.7 (31.0-37.0) g/dL RDW 13.2 (11.5-15.5) % Plt Count 200 (150-450) k/uL MPV 6.2 Neutrophils % 70 % Lymphocytes % 15 % Monocytes % 10 % Eosinophils % 2 % Basophils % 1 % Neutrophils # 5.8 (1.3-7.7) k/uL Lymphocytes # 1.3 (1.0-4.8) k/uL Monocytes # 0.8 (0-1.0) k/uL Eosinophils # 0.1 (0-0.7) k/uL Basophils # 0.1 (0-0.2) k/uL Sodium 130 L (137-145) mmol/L Potassium 4.8 (3.5-5.1) mmol/L Chloride 97 L (98-107) mmol/L Carbon Dioxide 25 (22-30) mmol/L Anion Gap 8 mmol/L BUN 20 (9-20) mg/dL Creatinine 1.06 (0.66-1.25) mg/dL Est GFR (CKD-EPI)AfAm >90 (>60 ml/min/1.73 sqM) Est GFR (CKD-EPI)NonAf 82 (>60 ml/min/1.73 sqM) Glucose 337 H (74-99) mg/dL Calcium 9.3 (8.4-10.2) mg/dL Total Bilirubin 0.5 (0.2-1.3) mg/dL AST 36 (17-59) U/L ALT 61 H (4-49) U/L Alkaline Phosphatase 185 H (38-126) U/L Total Protein 7.3 (6.3-8.2) g/dL Albumin 3.9 (3.5-5.0) g/dL Disposition Clinical Impression: Abscess of right foot, Cellulitis of right foot Disposition: ADMITTED IP TO THIS [facility] Condition: Serious Procedures - [place] Protocol (Time Out) Procedure Performed:: incision and drainage of right foot abscess Performing Provider: Paula Zhang Patient Identification (2 identifiers required): Chart, Verbal, Arm Band, Name, Birthdate Patient/Legal Cash Manager has Confirmed: Identity, Site, Procedure, Consent
[2020-03-08 02:56] LABS: Glucose,Whole Blood 271 mg/dL (75-99)
[2020-03-08 06:33] LABS: Basophils # (A) 0.1 k/uL (0-0.2); Basophils % (A) 1 %; Eosinophils # (A) 0.1 k/uL (0-0.7); Eosinophils % (A) 2 %; HCT 37.5 % (39.0-53.0); HGB 13.1 gm/dL (13.0-17.5); Lymphocytes # (A) 1.4 k/uL (1.0-4.8); Lymphocytes % (A) 20 %; MCH 28.2 pg (25.0-35.0); MCV 80.6 fL (80.0-100.0); Mean Platelet Volume 6.3; Monocytes # (A) 0.9 k/uL (0-1.0); Monocytes % (A) 13 %; Neutrophils # (A) 4.4 k/uL (1.3-7.7); Neutrophils % (A) 61 %; Platelet Count 195 k/uL (150-450); RBC 4.66 m/uL (4.30-5.90); RDW 13.3 % (11.5-15.5); WBC 7.3 k/uL (3.8-10.6)
[2020-03-08 07:14] LABS: Glucose,Whole Blood 259 mg/dL (75-99)
[2020-03-08] MEDS: LINAGLIPTIN 5 MG TABLET PO SCH (08:11)
[2020-03-08] MEDS: lisinopriL 10 MG TAB PO SCH (08:11)
[2020-03-08] MEDS: metFORMIN 500 MG TAB PO SCH ×2 (08:11→21:26)
[2020-03-08] MEDS: INSULIN ASPART (NovoLOG) 100 UNIT/ML VIAL SQ SCH ×4 (08:11→21:29)
[2020-03-08] MEDS ORDERED: INSULIN DETEMIR (LEVEMIR) 100 UNIT/ML SYR SQ SCH (09:00)
[2020-03-08] MEDS: VANCOMYCIN 1,750 MG in SODIUM CHLORIDE 0.9% 500 ML 500 ML IVPB SCH ×2 (09:09→21:26)
[2020-03-08 10:47] LABS: African American GFR (CKD) 89.6 (60.0-200.0); Albumin 3.9 g/dL (3.80-4.90); Albumin/Globulin Ratio 1.63 (1.60-3.17); BUN/Creat Ratio 15.45 Ratio (12.00-20.00); Globulin 2.4 g/dL (1.6-3.3); Non-African American GFR(CKD) 77.3 (60.0-200.0); Potassium 4.7 mmol/L (3.5-5.5); Total Bilirubin 0.5 mg/dL (0.3-1.2); Total Protein 6.3 g/dL (6.2-8.2)
[2020-03-08 11:13] LABS: Glucose,Whole Blood 241 mg/dL (75-99)
--- NOTE | 2020-03-08 13:37 | P.HPIM ---
History of Present Illness This is a pleasant 49 years old male with past medical history of diabetes mellitus, osteoarthritis, GERD. Patient's presents because of 2 day ulceration and swelling of his right big toe. Patient has about half inch ulcer at the base of the big toe on the dorsum of the foot, with surrounding area of erythema and swelling in the distal part of the foot, patient has neuropathy and he does not feel any pain in it. Patient denies any trauma. Patient states that he had a procedure last December to fix the joint in the same area. He denies any other complaints Vitals are stable. CBC is unremarkable, BMP is within normal limits. Liver enzymes slightly elevated with ALT 52, normal AST at 29, sugar is more than 200. Low sodium 1:30 came back to normal at 135. Wound cultures pending. Left foot x-ray showing a pathological fracture of the great toe distal phalanx and fragmentation of the great toe metatarsal head findings are concerning for osteomyelitis. In the emergency room he was started on ceftriaxone and vancomycin Infectious disease team were consulted Patient was at Bactrim at home which is stopped on admission. Also he is on Januvia 100 mg daily, metformin 1000 mg twice a day and Lantus 50 units daily. Review of Systems CONSTITUTIONAL: No fever, no malaise, no fatigue. HEENT: No recent visual problems or hearing problems. Denied any sore throat. CARDIOVASCULAR: No orthopnea, PND, no palpitations, no syncope. PULMONARY: No shortness of breath, no cough, no hemoptysis. GASTROINTESTINAL: No diarrhea, no nausea, no vomiting, no abdominal pain. Normoactive bowel sounds. NEUROLOGICAL: No headaches, no weakness, no numbness. HEMATOLOGICAL: Denies any bleeding or petechiae. GENITOURINARY: Denies any burning micturition, frequency, or urgency. MUSCULOSKELETAL/RHEUMATOLOGICAL: Denies any joint pain, swelling, or any muscle pain. ENDOCRINE: Denies any polyuria or polydipsia. Past Medical History Past Medical History: Diabetes Mellitus, Eye Disorder, GERD/Reflux, Osteoarthritis (OA) Additional Past Medical History / Comment(s): macular edema History of Any Multi-Drug Resistant Organisms: None Reported Past Surgical History: Appendectomy Additional Past Surgical History / Comment(s): oral surgery, left foot sugery december 2019 Past Anesthesia/Blood Transfusion Reactions: No Reported Reaction Past Psychological History: No Psychological Hx Reported Smoking Status: Never smoker Past Alcohol Use History: None Reported Past Drug Use History: None Reported - Past Family History Mother Family Medical History: Diabetes Mellitus Medications and Allergies Home Medications Medication Instructions Recorded Confirmed Type Insulin Glargine [Lantus] 50 unit SQ DAILY 08/07/15 03/07/20 History Enalapril [Vasotec] 5 mg PO DAILY 08/08/15 03/07/20 History metFORMIN HCL 1,000 mg PO BID 08/08/15 03/07/20 History sitaGLIPtin PHOSPHATE [Januvia] 100 mg PO DAILY 08/08/15 03/07/20 History Rosuvastatin Calcium [Crestor] 20 mg PO HS 03/07/20 03/07/20 History Sildenafil Citrate [Viagra] 100 mg PO DAILY PRN 03/07/20 03/07/20 History Sulfamethox-Tmp 800-160Mg [Bactrim 1 tab PO BID 03/07/20 03/07/20 History DS 800-160 mg] Allergies Allergy/AdvReac Type Severity Reaction Status Date / Time Penicillins Allergy Severe Unknown Verified 03/07/20 21:57 Childhood venom-honey bee Allergy Severe Dyspnea Verified 03/07/20 21:57 [bee venom (honey bee)] acetaminophen [From Tylenol] Allergy throat Verified 03/07/20 21:57 swelling Physical Exam Vitals: Vital Signs Temp Pulse Pulse Resp BP BP Pulse Ox 03/08/20 08:00 98.2 F 74 18 155/77 95 03/08/20 02:10 99.2 F 83 16 129/63 95 03/08/20 00:00 16 03/07/20 22:39 98.6 F 86 18 157/86 96 03/07/20 20:43 99.6 F 106 H 17 179/82 98 Intake and Output 03/07/20 03/08/20 03/08/20 22:59 06:59 14:59 Intake Total 550 Balance 550 Intake: IV 550 Vancomycin 1,750 mg In 500 Sodium Chloride 0.9% 500 ml 500 ml @ 167 mls/hr IVPB Q12H GO Rx#: [id number] cefTRIAXone 1 gm In 50 Sodium Chloride 0.9% 50 ml @ 100 mls/hr IVPB Q24HR GO Rx#:[id number] Other: Voiding Method Toilet # Voids 1 Weight 104.326 kg 104.326 kg GENERAL: The patient is alert and oriented x3, not in any acute distress. Well developed, well nourished. HEENT: Pupils are round and equally reacting to light. EOMI. No scleral icterus. No conjunctival pallor. Normocephalic, atraumatic. No pharyngeal erythema. No thyromegaly. CARDIOVASCULAR: S1 and S2 present. No murmurs, rubs, or gallops. PULMONARY: Chest is clear to auscultation, no wheezing or crackles. ABDOMEN: Soft, nontender, nondistended, normoactive bowel sounds. No palpable organomegaly. MUSCULOSKELETAL: No joint swelling or deformity. -EXTREMITIES: No cyanosis, clubbing, or pedal edema. Right foot:half inch ulcer at the base of the big toe on the dorsum of the foot, with surrounding area of erythema and swelling in the distal part of the foot. Nontender, possible from neuropathy NEUROLOGICAL: Gross neurological examination did not reveal any focal deficits. SKIN: No rashes. No petechiae Results CBC & Chem 7: 03/08/20 05:37 03/08/20 05:37 Labs: Abnormal Lab Results - Last 24 Hours (Table) 03/07/20 03/07/20 03/08/20 Range/Units 21:19 21:19 02:55 Hct 38.1 L (39.0-53.0) % Sodium 130 L (137-145) mmol/L Chloride 97 L (98-107) mmol/L Glucose 337 H (74-99) mg/dL POC Glucose (mg/dL) 271 H (75-99) mg/dL ALT 61 H (4-49) U/L Alkaline Phosphatase 185 H (38-126) U/L 03/08/20 03/08/20 03/08/20 Range/Units 05:37 05:37 07:12 Hct 37.5 L (39.0-53.0) % Sodium (137-145) mmol/L Chloride (98-107) mmol/L Glucose 260 H (74-99) mg/dL POC Glucose (mg/dL) 259 H (75-99) mg/dL ALT 52 H (4-49) U/L Alkaline Phosphatase 186 H (38-126) U/L 03/08/20 Range/Units 11:10 Hct (39.0-53.0) % Sodium (137-145) mmol/L Chloride (98-107) mmol/L Glucose (74-99) mg/dL POC Glucose (mg/dL) 241 H (75-99) mg/dL ALT (4-49) U/L Alkaline Phosphatase (38-126) U/L Microbiology - Last 24 Hours (Table) 03/07/20 22:40 Gram Stain - Preliminary Foot - Left Wound Culture - Preliminary Assessment and Plan Assessment: Left foot ulcer (diabetic ulcer) and cellulitis, with possible underlying great toe metatarsal bone osteomyelitis Diabetes mellitus, with hyperglycemia Laurence arthritis History of GERD Plan: This is a pleasant 49 years old male who presents with left foot sepsis/cellulitis and possible osteomyelitis. Continue with antibiotics as per ID team. Monitor kidney function and a last closely. Monitor sugar. Increase his insulin to 55 units Labs and medication were reviewed.. Continue same treatment. Continue with symptomatic treatment. Resume home medication. Monitor lytes and vitals. DVT and GI prophylaxis. Further recommendations depends on the clinical course of the patient DVT prophylaxis: Subcutaneous heparin GI Prophylaxis: Pepcid PT/OT: Pending
[2020-03-08 17:04] LABS: Glucose,Whole Blood 184 mg/dL (75-99)
--- NOTE | 2020-03-08 20:23 | CONS ---
CONSULTATION DATE OF SERVICE: 03/08/2020 REASON FOR FOLLOWUP: Right big toe osteomyelitis. HISTORY OF PRESENT ILLNESS: The patient is a 49-year-old male who apparently had surgery on his right big toe by his game and fish protector in December of 2019. The patient apparently did have a problem with a recurrent nonhealing wound as well as infection to the right big toe and has been treated with multiple courses of antibiotic. The patient is not sure about the name. The patient apparently was seen by his game and fish protector on Thursday for a new wound that apparently started a few days ago. The patient did have a dressing applied that was removed yesterday. He was noted to have worsening of the wound, his big toe becoming more swollen, red, and with concern for underlying development of abscess, the patient was sent to [facility]. Patient on presentation to the hospital did have a low-grade fever of 99.6. The patient had a normal white count. Kidney function has been normal. The patient had local cultures obtained which are currently pending. The patient did have x-rays of the right foot with evidence of a pathological fracture of the great toe distal phalanx and fragmentation of the great toe, metatarsal head; findings concerning for osteomyelitis. The patient was started on Rocephin and vancomycin and has been admitted to the hospital. Infectious Disease was consulted for further management of antibiotic therapy. The patient does have underlying diabetic neuropathy. Denies significant pain to the right big toe; however, he does feel pressure. REVIEW OF SYSTEMS: Positive points have been mentioned in HPI. Rest of the systems are negative. PAST MEDICAL HISTORY: Diabetes mellitus, gastroesophageal reflux disease, osteoarthritis, macular edema. PAST SURGICAL HISTORY: Appendectomy and right big toe surgery. SOCIAL HISTORY: Denies smoking, drinking or drug use, FAMILY HISTORY: Mother with history of diabetes. ALLERGIES: PENICILLIN and TYLENOL. MEDICATIONS: The patient is currently on Rocephin 1 gram daily. He is on Lipitor, Pepcid, heparin, NovoLog, Levemir, Tradjenta, Zestril, Glucophage, Narcan, Zofran and vancomycin, Pharmacy to dose. PHYSICAL EXAMINATION: Blood pressure is 123/66, pulse of 79, temperature 98.6. He is 94% on room air. General description is a middle-aged male lying in bed in no distress. No tachypnea or accessory muscle of respiration use. HEENT: Examination shows no pallor or scleral icterus. Oral mucous membrane is dry. NECK: Trachea is central. No thyromegaly. LUNGS: Unlabored breathing. Clear to auscultation anteriorly. No wheeze or crackle. HEART: S1, S2. Regular rate and rhythm. ABDOMEN: Soft. No tenderness. No guarding or rigidity. EXTREMITIES: No edema of the feet. Right big toe is swollen, red. Wound on the dorsal aspect with some purulent drainage, not foul-smelling. Neurologically the patient is awake, alert and oriented x3. Mood and affect normal. LABS: Hemoglobin is 13.1, white count 7.3, BUN of 17, creatinine 1.1. ALT mildly elevated. Wound culture presumptive MRSA. Blood culture obtained and currently pending. DIAGNOSTIC IMPRESSION AND PLAN: Patient presented to hospital with a recurrent nonhealing wound to the right big toe after apparently the patient did have surgery done by his game and fish protector in December, and he has been treated with multiple courses of antibiotic. This patient's right big toe is significantly swollen, almost twice the size of the left big toe, now with evidence of MRSA infection and actually is suspicious for osteomyelitis. Clinically behaving as osteomyelitis, acute, in this patient with underlying diabetes mellitus. PLAN: 1. Vancomycin, Pharmacy to dose. Target of trough of 15 and watching kidney and vancomycin trough closely. 2. Will obtain baseline CRP and sedimentation rate. 3. Discontinue Rocephin. 4. Patient will likely need a PICC line, which will be placed once his blood cultures are negative; arrangement for outpatient IV antibiotic therapy for at least 6 weeks. 5. We will follow his clinical condition and culture to further adjust medication if needed. Thank you for this consultation. Will follow this patient along with you. MMODL / IJN: [id number] /
[2020-03-08 21:00] LABS: Glucose,Whole Blood 187 mg/dL (75-99)
[2020-03-08] MEDS ORDERED: ATORVASTATIN 40 MG TAB PO SCH (21:00)
[2020-03-08] MEDS: HEPARIN SODIUM,PORCINE 5,000 UNIT/ML 1 ML VIAL SQ SCH (21:26)
[2020-03-08] MEDS: FAMOTIDINE 20 MG/2 ML VIAL IV SCH (21:26)
[2020-03-09 03:57] LABS: Hemoglobin A1C 7.6 % (4.0-6.0)
[2020-03-09 06:38] LABS: Glucose,Whole Blood 140 mg/dL (75-99)
[2020-03-09] MEDS ORDERED: INSULIN DETEMIR (LEVEMIR) 100 UNIT/ML SYR SQ SCH (07:00)
[2020-03-09] MEDS: INSULIN ASPART (NovoLOG) 100 UNIT/ML VIAL SQ SCH ×2 (07:56→12:47)
[2020-03-09] MEDS: FAMOTIDINE 20 MG/2 ML VIAL IV SCH (07:57)
[2020-03-09] MEDS: HEPARIN SODIUM,PORCINE 5,000 UNIT/ML 1 ML VIAL SQ SCH (07:57)
[2020-03-09] MEDS: metFORMIN 500 MG TAB PO SCH (07:58)
[2020-03-09] MEDS: lisinopriL 10 MG TAB PO SCH (07:58)
[2020-03-09] MEDS: LINAGLIPTIN 5 MG TABLET PO SCH (07:58)
[2020-03-09 09:37] VITALS: RESP 20
[2020-03-09 09:50] LABS: African American GFR (CKD) 100.6 (60.0-200.0); C Reactive Protein 5.2 mg/dL (0.0-0.8); Non-African American GFR(CKD) 86.8 (60.0-200.0)
[2020-03-09] MEDS: VANCOMYCIN 1,750 MG in SODIUM CHLORIDE 0.9% 500 ML 500 ML IVPB SCH (10:10)
[2020-03-09] MEDS ORDERED: LIDOCAINE 1% INJ 10MG/ML (20 ML MDV) ONE (11:24)
[2020-03-09] MEDS ORDERED: LIDOCAINE 1% INJ 10MG/ML (20 ML MDV) SQ ONE (11:33)
--- NOTE | 2020-03-09 11:40 | P.PN ---
Subjective This is a pleasant 49 years old male with past medical history of diabetes mellitus, osteoarthritis, GERD. Patient's presents because of 2 day ulceration and swelling of his right big toe. Patient has about half inch ulcer at the base of the big toe on the dorsum of the foot, with surrounding area of erythema and swelling in the distal part of the foot, patient has neuropathy and he does not feel any pain in it. Patient denies any trauma. Patient states that he had a procedure last December to fix the joint in the same area. He denies any other complaints Vitals are stable. CBC is unremarkable, BMP is within normal limits. Liver enzymes slightly elevated with ALT 52, normal AST at 29, sugar is more than 200. Low sodium 1:30 came back to normal at 135. Wound cultures pending. Left foot x-ray showing a pathological fracture of the great toe distal phalanx and fragmentation of the great toe metatarsal head findings are concerning for osteomyelitis. In the emergency room he was started on ceftriaxone and vancomycin Infectious disease team were consulted Patient was at Bactrim at home which is stopped on admission. Also he is on Januvia 100 mg daily, metformin 1000 mg twice a day and Lantus 50 units daily. 03/09/2020 Patient with no new complaint. His right big toe infection is growing MRSA on wound culture. Patient is comfortable with IV vancomycin and infectious disease on the case. Creatinine is within the reference range at 1.0 Osteomyelitis is suspected based on imaging and high C-reactive protein of 5.2 Patient will need a PICC line and prolonged course of IV antibiotics as per ID team for about 6 weeks Objective - Vital Signs Vital signs: Vital Signs Temp 98.2 F 03/09/20 08:00 Pulse 68 03/09/20 08:00 Resp 20 03/09/20 08:15 BP 113/67 03/09/20 08:00 Pulse Ox 96 03/09/20 08:00 Intake & Output 03/08/20 03/09/20 03/09/20 18:59 06:59 18:59 Intake Total 550 Balance 550 Intake: IV 550 Vancomycin 1,750 mg In 500 Sodium Chloride 0.9% 500 ml 500 ml @ 167 mls/hr IVPB Q12H GO Rx#: [id number] cefTRIAXone 1 gm In 50 Sodium Chloride 0.9% 50 ml @ 100 mls/hr IVPB Q24HR GO Rx#:[id number] Other: Voiding Method Toilet Toilet # Voids 3 2 2 - Exam GENERAL: The patient is alert and oriented x3, not in any acute distress. Well developed, well nourished. HEENT: Pupils are round and equally reacting to light. EOMI. No scleral icterus. No conjunctival pallor. Normocephalic, atraumatic. No pharyngeal erythema. No thyromegaly. CARDIOVASCULAR: S1 and S2 present. No murmurs, rubs, or gallops. PULMONARY: Chest is clear to auscultation, no wheezing or crackles. ABDOMEN: Soft, nontender, nondistended, normoactive bowel sounds. No palpable organomegaly. MUSCULOSKELETAL: No joint swelling or deformity. -EXTREMITIES: No cyanosis, clubbing, or pedal edema. Right foot:half inch ulcer at the base of the big toe on the dorsum of the foot, with surrounding area of erythema and swelling in the distal part of the foot. Nontender, possible from neuropathy NEUROLOGICAL: Gross neurological examination did not reveal any focal deficits. SKIN: No rashes. No petechiae - Labs CBC & Chem 7: 03/08/20 05:37 03/09/20 06:27 Labs: Abnormal Lab Results - Last 24 Hours (Table) 03/07/20 03/08/20 03/08/20 Range/Units 21:19 17:00 20:59 POC Glucose (mg/dL) 184 H 187 H (75-99) mg/dL Hemoglobin A1c 7.6 H (4.0-6.0) % C-Reactive Protein (0.0-0.8) mg/dL 03/09/20 03/09/20 Range/Units 06:27 06:36 POC Glucose (mg/dL) 140 H (75-99) mg/dL Hemoglobin A1c (4.0-6.0) % C-Reactive Protein 5.2 H (0.0-0.8) mg/dL Microbiology - Last 24 Hours (Table) 03/07/20 21:19 Blood Culture - Preliminary Blood No Growth after 24 hours 03/07/20 22:40 Gram Stain - Preliminary Foot - Left Wound Culture - Preliminary Presumptive MRSA Assessment and Plan Assessment: Left foot ulcer (diabetic ulcer) and cellulitis, with possible underlying great toe metatarsal bone osteomyelitis. Secondary to MRSA Diabetes mellitus, with hyperglycemia Laurence arthritis History of GERD Plan: This is a pleasant 49 years old male who presents with left foot sepsis/cellulitis and possible osteomyelitis. Continue with antibiotics as per ID team. Monitor kidney function and a last closely. Monitor sugar. Increase his insulin to 55 units Labs and medication were reviewed.. Continue same treatment. Continue with symptomatic treatment. Resume home medication. Monitor lytes and vitals. DVT and GI prophylaxis. Further recommendations depends on the clinical course of the patient DVT prophylaxis: Subcutaneous heparin GI Prophylaxis: Pepcid PT/OT: Pending
[2020-03-09 12:04] LABS: INR 0.9 (<1.2); Prothrombin Time 10.1 sec (9.0-12.0)
--- NOTE | 2020-03-09 12:08 | IR ---
EXAMINATION TYPE: IR cvc insert >=5 years DATE OF EXAM: 03/09/2020 COMPARISON: NONE CLINICAL HISTORY: Infection Needs long-term intravenous access for antibiotics. PROCEDURE: Hand hygiene obtained with soap and water and alcohol-based hand rub. After informed consent, the skin overlying the right basilic vein was localized with ultrasound and n oted to be compressible and patent. An ultrasound image was obtained and submitted on the patient's chart. The overlying skin was prepped and draped and Lidocaine was used for local anesthesia. A ski n car was made with a scalpel. Access was gained to the vein under ultrasound guidance with a 21 ga uge needle and a 0.018 inch wire was advanced. Access site was dilated with Peel-Away sheath and cat heter tailored to the appropriate length and advanced such that the distal tip is at the cavoatrial j unction. Spot image was obtained verifying placement. Catheter was fixed to the skin and a sterile dressing was placed following hemostasis. Catheter was aspirated and flushed with saline. Patient w as discharged in stable condition without complication. Maximal barrier technique is utilized. Ultra sound image is documented on the chart. Ultrasound used with sterile technique. Fluoro time and fluoroscopic images submitted to document procedure: 0.8 minutes fluoroscopy time, 15 0 intraoperative C-arm images document the procedure IMPRESSION: STATUS POST ULTRASOUND AND FLUOROSCOPIC GUIDED PICC LINE PLACEMENT, READY FOR USE. THIS PROCEDURE WAS PERFORMED BY THE UNDERSIGNED.
[2020-03-09 12:41] LABS: Glucose,Whole Blood 199 mg/dL (75-99)
--- NOTE | 2020-03-09 15:23 | PN ---
PROGRESS NOTE DATE OF SERVICE: 03/09/2020 REASON FOR FOLLOWUP: Right big toe osteomyelitis, MRSA with underlying diabetes mellitus. INTERVAL HISTORY: The patient is currently afebrile, has been breathing comfortably. Overall pain and discomfort to the right big toe is currently controlled. No chest pain, shortness of breath or cough. No abdominal pain or diarrhea. PHYSICAL EXAMINATION: Blood pressure 113/67, pulse of 58, temperature 98.2. He is 96% on room air. General description is a middle-aged male lying in bed in no distress. RESPIRATORY SYSTEM: Unlabored breathing. Clear to auscultation anteriorly. HEART: S1, S2. Regular rate and rhythm. ABDOMEN: Soft. No tenderness. Right big toe is swollen; did have a wound at the bottom, with no slough tissue. No drainage. LABS: Sedimentation rate of 45. Creatinine of 5.2. DIAGNOSTIC IMPRESSION AND PLAN: Patient with right big toe osteomyelitis, methicillin-resistant Staphylococcus aeruginosa with sensitivities pending. Patient is covered with vancomycin. He already got a PICC line ordered by admitting team. Once antibiotic arrangements are made, he may be able to go home with a plan for 6 weeks of IV antibiotic therapy. Continue with supportive care. MMODL / IJN: [id number] /
[2020-03-09 15:27] VITALS: BP 117/65; PULSE 83; TEMP 98.1
[2020-03-10] MEDS ORDERED: VANCOMYCIN TROUGH DUE 1 EACH MISC MISCELLANE ONE (09:00)
--- NOTE | 2020-03-15 08:15 | CDI ---
Documentation Clarification Form Date: 03/15/2020 08:13:00 AM From: Ayse Esteban Phone: Admit Date: 03/07/2020 10:58:00 PM Patient Name: Zack Javier Visit Number: [id number] Discharge Date: 03/09/2020 03:22:00 PM ATTENTION: The Clinical Documentation Specialists (CDI) and [facility] Coding Staff appreciate your assistance in clarifying documentation. Please respond to the clarification below the line at the bottom and electronically sign. The CDI & [facility] Coding staff will review the response and follow-up if needed. Please note: Queries are made part of the Legal Health Record. If you have any questions, please contact the author of this message via ITS. Dr. July Teague The diagnosis sepsis was documented in the record, but is not noted in subsequent documentation. History/Risk Factors: Osteomyelitis, DM, Cellulitis, Abscess, Diabetic ulcer, MRSA Clinical Indicators: Tachycardia, Osteomyelitis, Abscess Labs: CRP 5.2, WBC 8.3-7.3, Treatment: Rocephin 11 gm IVPB, Vancomycin 1,750 mg IVPB Please clarify if the sepsis was Present/active this admission Treated and resolved this admission Ruled out Other, please specify Clinically unable to determine MTDD
== END 2020-03-09 15:22 | disposition home health service (06) | DRG 872 ==
LOC: EC 20:42 → 4SSUR 22:58
PROVIDERS: ADMIT Hospitalist; ATTEND Hospitalist
PROC: 0H9MXZZ Drainage of Right Foot Skin, External Approach (ICD-10-PCS; principal; 2020-03-07)
PROC: 02HV33Z Insertion of Infusion Device into Superior Vena Cava, Percutaneous Approach (ICD-10-PCS; 2020-03-09)
DX: A41.9 Sepsis, unspecified organism (principal); L97.516 Non-pressure chronic ulcer of other part of right foot with bone involvement without evidence of necrosis; M84.674A Pathological fracture in other disease, right foot, initial encounter for fracture; M86.171 Other acute osteomyelitis, right ankle and foot; L03.115 Cellulitis of right lower limb; L02.611 Cutaneous abscess of right foot; E11.311 Type 2 diabetes mellitus with unspecified diabetic retinopathy with macular edema; E11.621 Type 2 diabetes mellitus with foot ulcer; E11.42 Type 2 diabetes mellitus with diabetic polyneuropathy; E11.69 Type 2 diabetes mellitus with other specified complication; E11.628 Type 2 diabetes mellitus with other skin complications; E11.65 Type 2 diabetes mellitus with hyperglycemia; Z79.4 Long term (current) use of insulin; M19.90 Unspecified osteoarthritis, unspecified site; B95.62 Methicillin resistant Staphylococcus aureus infection as the cause of diseases classified elsewhere; K21.9 Gastro-esophageal reflux disease without esophagitis; Z79.899 Other long term (current) drug therapy; Z90.49 Acquired absence of other specified parts of digestive tract; Z88.0 Allergy status to penicillin; Z88.6 Allergy status to analgesic agent; Z91.030 Bee allergy status; Z83.3 Family history of diabetes mellitus
CPT/HCPCS: 10060; 36415; 36573; 80053; 82565; 83036; 85025; 85610; 85652; 86140; 87040; 87070; 87077; 87186; 87205; 96365; 96367; 99284

== ENCOUNTER → 2020-04-11 | Outpatient (CLI) | payer BC ==
--- NOTE | 2020-04-11 12:31 | XR ---
EXAMINATION TYPE: XR toes RT DATE OF EXAM: 04/11/2020 COMPARISON: 03/07/2020 HISTORY: Right Big Toe Osteomyelitis M86.9 TECHNIQUE: 3 views of the right great toe are submitted. FINDINGS: There is bony destructive process noted to involve the proximal phalanx of the right great toe compatible with the provided history of osteomyelitis. Sclerotic changes noted of the first metat arsal head unchanged from prior study. IMPRESSION: Findings compatible with osteomyelitis.
== END | disposition home or self-care (01) ==
LOC: RADXRMAIN 09:51
PROVIDERS: ATTEND Internal Medicine Infectious Disease
DX: M86.8X7 Other osteomyelitis, ankle and foot (principal); Z88.0 Allergy status to penicillin; Z88.6 Allergy status to analgesic agent

== ENCOUNTER → 2020-05-15 | Outpatient (CLI) | payer BC ==
[2020-05-16 01:13] LABS: Basophils # (A) 0.07 X 10*3/uL (0.00-0.10); Basophils % (A) 1.1 %; Eosinophils # (A) 0.17 X 10*3/uL (0.04-0.35); Eosinophils % (A) 2.8 %; HCT 31.9 % (39.6-50.0); HGB 10.8 g/dL (13.0-17.0); Lymphocytes # (A) 2.02 X 10*3/uL (0.90-5.00); Lymphocytes % (A) 32.8 %; MCH 27.8 pg (27.0-32.0); MCHC 33.9 g/dL (32.0-37.0); Mean Platelet Volume 9.7 fL (9.5-12.2); Monocytes # (A) 0.79 X 10*3/uL (0.20-1.00); Monocytes % (A) 12.8 %; Neutrophils # (A) 3.07 X 10*3/uL (1.80-7.70); Platelet Count 182 X 10*3/uL (140-440); RBC 3.89 X 10*6/uL (4.40-5.60); RDW 13.4 % (11.5-14.5); WBC 6.15 X 10*3/uL (4.50-10.00)
[2020-05-16 01:57] LABS: Erythrocyte Sedimentation Rate 35 mm/Hr (0-20)
[2020-05-16 06:28] LABS: African American GFR (CKD) 61.2 (60.0-200.0); BUN/Creat Ratio 15.33 Ratio (12.00-20.00); C Reactive Protein <0.4 mg/dL (0.0-0.8); Chloride 106 mmol/L (96-109); Glucose 130 mg/dL (70-110); Non-African American GFR(CKD) 52.8 (60.0-200.0); Potassium 4.5 mmol/L (3.5-5.5); Sodium 137 mmol/L (135-145)
== END | disposition home or self-care (01) ==
LOC: LABWHC1 15:49
PROVIDERS: ATTEND Internal Medicine Infectious Disease
DX: M86.161 Other acute osteomyelitis, right tibia and fibula (principal)
CPT/HCPCS: 36415; 80048; 85025; 85652; 86140

== ENCOUNTER → 2020-06-01 | Outpatient (CLI) | payer BC ==
[2020-06-01 23:33] LABS: Basophils # (A) 0.04 X 10*3/uL (0.00-0.10); Eosinophils # (A) 0.33 X 10*3/uL (0.04-0.35); Eosinophils % (A) 7.9 %; HCT 30.5 % (39.6-50.0); HGB 10.1 g/dL (13.0-17.0); Lymphocytes # (A) 1.15 X 10*3/uL (0.90-5.00); Lymphocytes % (A) 27.4 %; MCH 27.7 pg (27.0-32.0); MCHC 33.1 g/dL (32.0-37.0); MCV 83.6 fL (80.0-97.0); Mean Platelet Volume 9.5 fL (9.5-12.2); Monocytes # (A) 0.78 X 10*3/uL (0.20-1.00); Monocytes % (A) 18.6 %; Neutrophils # (A) 1.89 X 10*3/uL (1.80-7.70); Neutrophils % (A) 44.9 %; Platelet Count 172 X 10*3/uL (140-440); RBC 3.65 X 10*6/uL (4.40-5.60)
[2020-06-02 01:18] LABS: Erythrocyte Sedimentation Rate 27 mm/Hr (0-20)
[2020-06-02 02:52] LABS: African American GFR (CKD) 80.1 (60.0-200.0); C Reactive Protein <0.4 mg/dL (0.0-0.8); Calcium 9.3 mg/dL (8.7-10.3); Carbon Dioxide 27.1 mmol/L (21.6-31.8); Chloride 105 mmol/L (96-109); Glucose 130 mg/dL (70-110); Non-African American GFR(CKD) 69.1 (60.0-200.0); Potassium 4.2 mmol/L (3.5-5.5); Sodium 140 mmol/L (135-145)
== END | disposition home or self-care (01) ==
LOC: LABWHC1 15:40
PROVIDERS: ATTEND Internal Medicine Infectious Disease
DX: M86.171 Other acute osteomyelitis, right ankle and foot (principal)
CPT/HCPCS: 36415; 80048; 85025; 85652; 86140